=== PATIENT | male | born 1980 | race Two or more races ===

== ENCOUNTER 2023-02-04 11:12 | Emergency (ER) | payer OTHER ==
[~2023-02-04] VITALS: Ht 177.8 cm; Wt 90.0 kg
[2023-02-04 11:13] VITALS: O2SAT 99
[2023-02-04] MEDS ORDERED: KETOROLAC 30MG/ML VIAL IV ONE (11:45)
[2023-02-04 11:58] LABS: BASOPHILS % 0.3 % (0.0-2.0); EOSINOPHILS % 1.7 % (0.0-5.0); HEMATOCRIT. 40.8 % (42.0-52.0); LYMPHOCYTES % 26.4 % (20.0-50.0); MEAN CORPUSCULAR HEMOGLOBIN 29.6 pg (28.0-32.0); MEAN CORPUSCULAR HGB CONC 34.3 g/dL (31.0-37.0); MEAN CORPUSCULAR VOLUME 86.4 fL (80.0-94.0); MEAN PLATELET VOLUME 8.1 fl (7.4-10.4); NEUTROPHILS % 64.6 % (40.0-76.0); PLATELET 229 x1000/uL (130-400); RED BLOOD CELL COUNT 4.72 mill/uL (4.7-6.1); RED CELL DISTRIBUTION WIDTH 13.1 % (11.6-14.6); WHITE BLOOD COUNT 7.5 x1000/uL (4.5-11.0)
[2023-02-04 12:16] LABS: CALCIUM 9.2 mg/dL (8.7-10.4); CARBON DIOXIDE 25 mEq/L (21-32); CHLORIDE 106 mEq/L (98-107); CREATININE 0.9 mg/dL (0.6-1.3); GLUCOSE 98 mg/dL (70-105); POTASSIUM 3.9 mEq/L (3.5-5.1); SODIUM 138 mEq/L (136-145); UREA NITROGEN BLOOD 13 mg/dL (9-23)
[2023-02-04 12:22] LABS: TROPONIN I HIGH SENSITIVITY < 4 ng/L (3.0-53)
[2023-02-04 13:30] VITALS: BP 133/82; PULSE 91; RESP 18; TEMP 98.3
== END 2023-02-04 13:21 | disposition home or self-care (01) ==
LOC: ER 11:12
DX: R07.81 Pleurodynia (principal)
CPT/HCPCS: 80048; 85025; 85379; 84484; 36415; 71045; 93005; 96374; 99285; J1885; Z7610 ×3